=== PATIENT | female | born 1960 | race Caucasian/White ===

== ENCOUNTER → 2017-05-11 | Outpatient (CLI) | payer BC ==
[~2017-05-11] MED LIST: AEROCHAMBER PLU IH; ALBUTEROL2 PUFFS/17 IN; AMOXIL500 MG PO; CIPRO 500MG TA500 MG PO; EXFORGE 10 MG-11 TAB PO; LANSOPRAZOLE30 MG PO; LORTAB 5/500 501 TAB PO; MEDROL 4MG. DOSE4 MG PO; NORCO 325 MG-51 TAB PO; OXAZEPAM 10MG C10 M1 PO; PAXIL20 MG PO; PERCOCET 5/3251 EACH PO; PHENERGAN 25MG.25 M1 PO; PREMARIN 0.3MG0.3 MG PO; PRILOSEC20 M1 PO; PRILOSEC20 MG PO; PROAIR HFA0.09 MG/AC IH; SINGULAIR10 MG PO; SPIRIVA HA1 PUFF/INH IH; TESSALON PERLE100 MG PO; TRAMADOL 50MG T50 M1 PO; VICODIN 5/500 T1 TAB PO; VICODIN 7.5/501 EACH PO; VOLTAREN75 MG PO
--- NOTE | 2017-05-14 09:13 | RADIOLOGY REPORT PS360 ---
DIG MAMM-SCREEN DONOVAN W/CAD, US BREAST-LT COMPLETE W/AXILLA, US BREAST-RT COMPLETE W/AXILLA, ORDERING PHYSICIAN : Garfield Reyes MD PATIENT AGE: 56 years GENDER: Female COMPARISON: Only available studies: film screen mammograms: November 2005 INDICATION: Routine screening palpable areas bilaterally No hormones no new complaints previous stereotactic biopsy left breast.. Noncontributory family history Subsequent history of palpable areas and fibroadenomas 11 years ago as obtained by the cardiovascular radiologic technologist. TECHNIQUE: Standard CC and MLO images were obtained. R2 CAD reviewed. --BILATERAL DIGITAL SCREENING MAMMOGRAM FINDINGS: Mild to moderate residual glandular elements bilateral . Overall Fairly low-density breast bilaterally with no dominant mass nor suspicious calcification. No significant change since prior study. CAD highlights no areas of concern. No skin marker is either breast to indicate palpable areas as typically performed with such. RIGHT BREAST: No areas of concern LEFT BREAST: 2 Metallic markers from previous percutaneous biopsy. One upper-outer quadrant. The other at the medial inferior breast. No areas of concern. ========= --BILATERAL BREAST ULTRASOUND including axillary survey Imaging entire right and left breast including axillary survey performed/ MW HISTORY : Additional/history for this this ultrasound, per technologist, states palpable areas bilateral &. Gives history of fibroadenomas removed 11 years ago I believe from left breast ... RIGHT BREAST ULTRASOUND. No suspicious findings. Tiny 3.7 mm x 1.3 mm likely debris-filled cyst deep breast 2 o'clock position deep breast Axillary region survey demonstrate scattered benign-appearing lymph nodes nodes.. ... LEFT BREAST ULTRASOUND.: 1 o'clock position central breast.: Thin elongated area of tissue vs less likely elongated solid nodule.. Benign appearance either case Measuring up to 11 mm length x 2.5 mm AP... Follow-up suggested.. 9:00 Another elongated area reflecting hypoechoic focus of tissue vs elongated cyst. Less likely elongated small solid nodule Small 7.8 mm length x 2 mm AP. Unimpressive. Follow-up adequate and recommended. 11:00. Small 4.2 mm small hypoechoic area likely debris-filled cyst Axillary survey. Scattered benign appearing axillary lymph nodes. Appearing there is a history of fibroadenomas in this patient . IMPRESSION: No areas of significant concern on today's mammography nor subsequent ultrasound.. Left breast. There are some thin benign appearing elongated hypoechoic areas on reflecting likely debris-filled cyst although cannot exclude developing fibroadenoma at the 1 o'clock position Recommend follow-up left breast ultrasound 6 months to further evaluate BI-RADS CATEGORY: 3_Probably Benign-Short Term F/U RECOMMENDED FOLLOWUP: 6M 6MONTH FOLLOW-UP (A letter has been sent to the patient regarding results of the study.)
== END ==
LOC: RAD 04-28 15:00
DX: Z12.31 Encounter for screening mammogram for malignant neoplasm of breast (principal); N60.19 Diffuse cystic mastopathy of unspecified breast
CPT/HCPCS: G0202

== ENCOUNTER → 2017-07-19 | Day surgery (SDC) | payer BC | LOC: SDC 11:35 | DX: Z53.9 Procedure and treatment not carried out, unspecified reason (principal) ==